=== PATIENT | female | born 2000 | race Two or more races ===

== ENCOUNTER → 2024-08-30 | Outpatient (CLI) | payer SELFPAY ==
[2024-08-30 15:04] LABS: Collection Type, Urine Clean Catch
[2024-08-30 16:07] LABS: Bacteria,Urine 1+; Bilirubin,Urine Negative (Negative); Blood,Urine 2+ (Negative); Color,Urine Yellow (Lt Yel-Yel); Glucose, Urine Negative (Negative); Ketones,Urine Trace (Negative); Leukocyte Esterase,Urine Positive (Negative); Nitrite,Urine Positive (Negative); Protein,Urine 2+ (Neg - Trace); RBC,Urine 38 /hpf (0-3); Squamous Epithelial Cell,Urine 14 /hpf (0-5); Urobilinogen,Urine Negative mg/dL (0.0-1.0); WBC,Urine 1236 /hpf (0-5)
[2024-08-30 16:22] LABS: Clarity,Urine Turbid (Clear/Hazy)
== END | disposition home or self-care (01) ==
LOC: SLDO 14:44
PROVIDERS: PCP Physician Assistant; Referring Provider Physician Assistant; Visit Provider Physician Assistant
DX: N39.0 Urinary tract infection, site not specified (principal)
CPT/HCPCS: 81001; 87077; 87086; 87186

== ENCOUNTER → 2025-02-15 | Outpatient (CLI) | payer BC, SELFPAY ==
[2025-02-15 12:03] LABS: HCG Titer if Positive Positive
[2025-02-15 12:51] LABS: Beta HCG,Quantitative 20643 mIU/mL (<5.0)
== END | disposition home or self-care (01) ==
LOC: COPL 11:03
PROVIDERS: PCP Nurse Practitioner Family; Referring Provider Nurse Practitioner Family; Visit Provider Nurse Practitioner Family
DX: Z32.01 Encounter for pregnancy test, result positive (principal)
CPT/HCPCS: 36415; 84702; 84703

== ENCOUNTER 2025-02-22 10:37 | Emergency (ER) | payer BC, SELFPAY ==
[2025-02-22 10:48] VITALS: BP 133/79; PULSE 94; RESP 18; TEMP 36.8; O2SAT 98; BMI 27.2
--- NOTE | 2025-02-22 11:44 | EDNOTE_ITS ---
<Statement entered by Chula Kim MD - 02/22/25 15:08> As co-signing physician, I was present and available for consult prn. I concur with the plan and care as documented by the midlevel provider. ED OB Contraction Preg RMI/HPI General Chief complaint: Vaginal Bleeding Stated complaint: 7 weeks OB, vaginal bleeding today Time Seen by Provider: 02/22/25 11:43 Source: patient and family Arrival date/time: 02/22/25 10:37 Mode of arrival: ambulatory Limitations: no limitations RME / HPI RME / HPI Narrative: 24-year-old female presents to the ED with a complaint of vaginal bleeding upon wiping after urinating this morning. At about this time patient describes a cramping sensation to the area of the left lateral bladder. This is her third MD Complaint: vaginal bleeding Onset (ago): hour(s) (This a.m.) Consistency: intermittent Location: pelvis Related Data Home Medications ?Medication ?Instructions ?Recorded ?Confirmed ibuprofen 800 mg tablet 800 mg PO Q8H PRN Pain 12/0612/06/20 Previous Rx's ?Medication ?Instructions ?Recorded albuterol sulfate 90 mcg/actuation 2 puff inhalation Q 6H PRN 12/11/20 aerosol inhaler (ProAir HFA) shortness of breath or wh eezing #6.7 grams cefpodoxime 200 mg tablet 200 mg PO BID #6 tabs Allergies Allergy/AdvReac Type Severity Reaction Status Date / Time Penicillins Allergy Intermediate HIVES Verified 02/22/25 10:43 Review of Systems Constitutional Constitutional: Reports system reviewed and no additional complaints, except as documented Eyes Eyes: Reports system reviewed and no additional complaints, except as documented, Denies dry eyes, Denies exophthalmos and Reports floaters Cardiovascular Cardiovascular: Denies chest pain with activity and Denies claudication ED Exam General Limitations: Present no limitations General appearance: Present alert and in no apparent distress Head Head exam: Present atraumatic Eye Eye exam: Present normal appearance and EOMI ENT ENT exam: Present normal exam, normal oropharynx and mucous membranes moist Neck Neck exam: Present normal inspection, full ROM and trachea midline Chest Chest inspection: Present normal inspection and symmetric chest wall rise Respiratory Respiratory exam: Present normal lung sounds bilaterally Cardiovascular Cardiovascular exam: Present regular rate, normal rhythm and normal heart sounds Abdominal Exam Abdominal exam: Present soft and normal bowel sounds Extremities Exam Extremities exam: Present normal inspection and full ROM Back Exam Back exam: Present normal inspection and full ROM Neurological Exam Neurological exam: Present alert and oriented X3 Psychiatric Psychiatric exam: Present normal affect and normal mood Skin Skin exam: Present warm, dry, intact and normal color Course Course Course Narrative: Patient will have a CBC, CMP, hCG, quality, UA, ultrasound, Rh Quality Measures none (NA) Orders Category Date Time Status Administer Rhogam NOW Care 02/22/25 14:05 Active US OB <= 14 weeks fetus Stat Exams 02/22/25 11:54 Completed Beta HCG,Quantitative Stat Lab 02/22/25 11:58 Completed CBC Stat Lab 02/22/25 11:58 Completed CMP [Comprehensive Metabolic Panel] Stat Lab 02/22/25 11:58 Completed Lipase Stat Lab 02/22/25 11:58 Completed Rh Testing Only Stat Lab 02/22/25 12:14 Completed NA Vital Signs Vital signs: Vital Signs Temperature 98.2 F 02/22/25 10:48 Pulse Rate 94 02/22/25 10:48 Respiratory Rate 18 02/22/25 10:48 Blood Pressure 133/79 H 02/22/25 10:48 Pulse Oximetry (%) 98 02/22/25 10:48 Oxygen Delivery Method Room Air 02/22/25 10:48 Pulse ox room air 98% Vaginal Bleeding MDM Narrative MDM Narrative: Patient will be made aware of her ultrasound results which demonstrate a intrauterine at 6 weeks and 2 days. 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 Patient had negative car Rh and she will be given a dose of RhoGAM. Patient data External records reviewed:: Other (specify) (NA) Clinical information provided by:: none (NA) Social determinants that could affect healthcare access:: none (NA) Patient has the following chronic illnesses:: NA How is presenting disease/condition affected by chronic disease/condition?: no chronic disease (No chronic disease) Evaluation data The following diagnostics were reviewed and interpreted by me:: other (specify) (NA) Lab and/or radiology exams considered but not ordered:: NA Interpretation Summary: 6-week and 2 days viable intrauterine Medications / Prescriptions Medications or Prescriptions considered but not ordered:: NA Medication administrations:: RHOGAM Consultations Consultation(s) initiated? (list below): No Diagnosis Vaginal Bleeding Differential Diagnosis: threatened , dysfunctional uterine bleeding, menometrorrhagia, incomplete , ectopic without intrauterine and vaginal bleeding Most likely diagnosis given after review of the tests above:: Rh- patient Admission Indicated Admission indicated?: not indicated Explain why admission is indicated or not indicated:: NA Admission Request Was there a request for admission?: No Disposition Plan Disposition Plan: Discharge Discharge Attestation Discharge Attestation: The patient and all family members were given an opportunity to ask questions and understood the discharge instructions. Discharge instructions specifically effects, indications for sooner follow up or return to the emergency department, and the expected course of current diagnosis. Patient condition: Stable Discharge Plan Plan Patient Disposition: HOME (Self Care) Discharge Disposition comment: Discharge in no apparent distress Patient condition on transfer: Stable Prescriptions/Referrals Prescriptions/Med Rec: No Action ibuprofen 800 mg Tablet 800 mg PO Q8H PRN (Reason: Pain) Rx Instructions: prn stomach and back pain cefpodoxime 200 mg tablet 200 mg PO BID Qty: 6 0RF Rx Instructions: Please administer with a meal/food. Start 12/12. albuterol sulfate [ProAir HFA] 90 mcg/actuation HFA aerosol inhaler 2 puff inhalation Q6H PRN (Reason: shortness of breath or wheezing) Qty: 6.7 0RF Referrals: Chula Cage FNP [Primary Care Provider] - In 1 week Problem List Clinical Impression: Confirmed intrauterine on ultrasound, Threatened Patient/Caregiver Discharge Instructions Print Language: Swedish Stand Alone Forms: Alexa Award Info., Work/School Release, Patient Portal Info Letter FABIO/ALLEGRA Supervising Physician FABIO/ALLEGRA Supervising Physician: RAMON
--- NOTE | 2025-02-22 11:54 | XR_ITS ---
Examination: Complete OB ultrasound, less than 14 weeks, transabdominal Date and time of exam: February 22, 2025 12:18 PM INDICATIONS: Vaginal bleeding beginning 2 days ago Technique: Obstetrical ultrasound images less than 14 weeks performed via transabdominal imaging Findings: A normal shaped single intrauterine gestation is present in the uterus. 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 Amniotic fluid volume appears appropriate for this estimated gestational age. Right ovary 2.2 cm arterial flow Left ovary 3.7 cm arterial flow 21 mm cyst IMPRESSION: Viable intrauterine gestation 6 weeks 2 days.
[2025-02-22 12:26] LABS: Basophils # (Auto) 0.1 Thou/mm3 (0.0-0.2); Basophils % (Auto) 1 % (0-2.5); Eosinophils # (Auto) 0.0 Thou/mm3 (0.0-0.5); Eosinophils % (Auto) 0 % (0-10); Hematocrit 38.1 % (36.0-46.0); Hemoglobin 12.9 g/dL (12.0-16.0); Immature Granulocytes Auto 0.01 Thou/mm3 (0.00-0.00); Lymphocytes # (Auto) 2.3 Thou/mm3 (1.0-4.8); Lymphocytes % (Auto) 32 % (10-50); Mean Corpuscular HGB Conc 33.9 g/dl (31.0-37.0); Mean Corpuscular Hemoglobin 29.7 pg (25.0-35.0); Mean Corpuscular Volume 88 fL (80-100); Monocytes # (Auto) 0.6 Thou/mm3 (0.0-0.8); Monocytes % (Auto) 9 % (0-12); Neutrophils # (Auto) 4.3 Thou/mm3 (1.8-7.7); Neutrophils % (Auto) 59 % (37-80); Nucleated Red Blood Cell # 0.00 Thou/mm3 (0.00-0.00); Nucleated Red Blood Cell % 0 /100 WBC (0); Platelet Count 270 Thou/mm3 (140-440); RDW Standard Deviation 41.8 fL (36.4-46.3); Red Blood Count 4.35 Miln/mm3 (4.00-5.20); White Blood Count 7.3 Thou/mm3 (3.6-11.0)
[2025-02-22 12:50] LABS: Alanine Aminotransferase 26 U/L (10-49); Albumin, Serum 4.6 gm/dL (3.5-5.0); Albumin/Globulin Ratio 1.7 (1.2-2.2); Alkaline Phosphatase 60 U/L (46-116); Anion Gap 9 (7-16); Aspartate Amino Transferase 31 U/L (0-34); BUN/Creatinine Ratio 9 Ratio (12-20); Bilirubin,Total 0.4 mg/dL (0.3-1.2); Blood Urea Nitrogen 7 mg/dL (9-23); Calcium 9.3 mg/dL (8.3-10.6); Calcium (Corrected) 9.3 mg/dL (8.5-10.1); Carbon Dioxide 23.8 mMol/L (20.0-31.0); Chloride 106 mMol/L (98-107); Creatinine (Component) 0.8 mg/dL (0.6-1.3); Estimated Creatinine Clearance 118.3 mL/min (>60); Globulin 2.7 gm/dL (2.3-3.5); Glucose 87 mg/dL (74-106); Lipase 31 U/L (12-53); Osmolality,Calculated 274 (275-295); Potassium 3.9 mMol/L (3.4-5.1); Sodium 139 mMol/L (136-145); Total Protein 7.3 gm/dL (5.7-8.2); eGFR > 60 See Note
[2025-02-22 13:25] LABS: Beta HCG,Quantitative 49890 mIU/mL (<5.0)
[2025-02-22 18:02] VITALS: BP 115/73; PULSE 91; RESP 16; TEMP 36.7; O2SAT 100
[2025-02-22 18:13] VITALS: BP 114/76; PULSE 93; RESP 16; TEMP 36.9; O2SAT 100
== END 2025-02-22 18:44 | disposition home or self-care (01) ==
PROVIDERS: Emergency Provider Physician Assistant; PCP Nurse Practitioner Family
DX: O20.0 Threatened abortion (principal); Z3A.01 Less than 8 weeks gestation of pregnancy
CPT/HCPCS: 36415; 76801; 80053; 83690; 84702; 85025; 86850; 86900; 86901; 99283; J2790

== ENCOUNTER 2025-03-06 13:21 | Outpatient (AMB) | payer BC, SELFPAY ==
--- NOTE | 2025-03-06 13:47 | OBCLNT_ITS ---
Vital Signs 03/06/25 13:48 Height 1.7 m Height Method Measured Weight 88.507 kg Weight Measurement Method Standing Scale BMI 30.6 BP 121/83 Blood Pressure Source Automatic Cuff Blood Pressure Location Right Upper Arm Position Sitting Respiration 17 Pulse 94 Pulse Source Monitor Temp 98.2 F Temp Source Temporal Artery Scan Pulse Oximetry (%) 98 Oxygen Delivery Method Room Air Allergies/Home Meds Allergies & Medications Allergies Penicillins Allergy (Intermediate, Verified 03/06/25 13:48) HIVES Medication Reconciliation vits no.130-ferrous fum 27 mg iron-folic acid 800 mcg tablet ( Vitamin) 1 tab PO QDAY pregancy #60 tabs 03/06/25 [Rx] Intake Visit Data Collection New Patient or Established: Established Patient (seen at [facility] within 3 years) Reason for Visit:: OBI Consent obtained for Telemed Visit: No Seen by Clinical Staff ONLY (RN/MA): No Apparel Manufacture Instructor Required: No Do You Feel Safe at Home: Yes Authorities Contacted: N/A PCP or OBGYN visit in last 3 months: Yes Date of Last PCP or OBGYN visit: 02/22/25 Hx Now: Yes Are you currently on any form of Control: No Last menstrual period: 01/08/25 Pain Present Currently: No Pain Scale Used: Parsons-Gallegos/Numerical Pain scale:: 0 Smoking Status Smoking Status: Never smoker Questionnaires Covid-19 Vaccine Questionnaire Has patient been vacinated for Covid-19 Have you been vacinated for Covid-19: No PHQ-9 PHQ-2 Over the last 2 weeks, how often have you been bothered by any of the following problems? 1. Little interest or pleasure in doing things: not at all 2. Feeling down, depressed, or hopeless: not at all Total score: 0 PHQ-9 3. Trouble falling or staying asleep, or sleeping too much: Not at all 4. Feeling tired or having little energy: Not at all 5. Poor appetite or overeating: Not at all 6. Feeling bad about yourself - or that you are a failure or have let yourself or your family down: Not at all 7. Trouble concentrating on things, such as reading the newspaper or watching television: Not at all 8. Moving or speaking so slowly that other people could have noticed? - Or the opposite - being so fidgety or restless that you have been moving around a lot more than usual: not at all 9. Thoughts that you would be better off or of hurting yourself in some way: Not at all Total score: 0 If you checked off any problems, how difficult have these problems made it for you to do your work, take care of things at home, or get along with other people?: not difficult at all Source: Developed by Drs. Darrick Teixeira, Mary Lou Alarcon, Micky Andrade and colleagues, with an educational hina from [employer]. Social History Living Situation History Lives With: Family Housing: House Tobacco History Smoking Status: Never smoker Alcohol History Alcohol Intake: Never Domestic Abuse History Do You Feel Safe at Home: Yes History of Present Illness HPI Narrative 24-year-old 3 para 0 for OBI. 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 Plan . Last period January 08, 2025. Estimated due date October 15, 2025. Patient had ER visit February 22 for bleeding. Patient measured at that time 6 weeks 2 days and this confirmed dates. She still continues to have subtle spotting pink. Increased nausea. She is not passing cramps and no pain. Denies social habits. Denies surgery. Denies chronic illness. Partner and patient are happy about the COATING INSPECTOR: Past Medical History Past Medical History: No Hx Neurological Disorders, No Hx Cardiac Disorders, No Hx Blood Disorders, No Hx Gastrointestinal Disorders, No Hx Renal Disease, No Hx Diabetes Mellitus Type 1 and No Hx Diabetes Mellitus Type 2 OB Initial Visit OB Flowsheet OB Flowsheet Initial Weight: Not Recorded Date -?-?-?-?-?-?-?-?-?-?-?-?- EGA Weight BP Alb Glu CTX Pres Fundal ht FHR Mov Dilation Station Effacement Hx Notes Visit Note 03/06/25 -?-?-?-?-?-?-?-?-?-?-?-?- 8w 1d 88.507 kg 121/83 absent unknown 8 ab sent 24-year-old 3 24-year-old 3 para 0 . Last period January 08, 2025. This gives due date October 15, 2025. Patient had a ER visit February 22. For bleeding. Patient was given RhoGAM at that time. And ultrasound on 8 6 showed 6 weeks to. And this confirmed dates. Slight nausea and vomiting today. No other OB complaints. Patient denies social habits. Denies surgery. Denies chronic illness. Patient and partner are very happy about the . + fht on sono. hCG was 49,000 OB sono today/threatened sab, discuss sab precaution, OB panel with HCG, A1c, order PNV, comtofrt measure for nausea. rtc 3 week OB sono today/threatened sab , discuss sab precaution, OB panel with HCG, A1c, order PNV, comtfort measure for nausea. rtc 3 week, schedule sono, start PNV Menstrual History Menstrual reliability: definite Flow: normal Menstrual regularity: regular Monthly: Yes Age at menarche: 15 On control pills at conception: No Date of positive home test: 01/31/25 OB History : 3 Para: 0 Hx # Pregnancies: 0 Hx Total # of Abortions (Spontaneous & Elective): 2 # of Living Children: 0 Infection History & Risk Evaluation History of STDs: none HIV risk evaluation: low risk Hepatitis B risk evaluation: low risk Patient or partner has history of Genital Herpes: No Genetic Screening & History Genetic Screening/Teratology Counseling - Includes patient, baby's father, or anyone in either family with: 1. Patient's age 35 years or older as of estimated date of delivery: No 2. Thalassemia (Gambian, Sudanese, Mediterranean, or Background); MCV less than 80: No 3. Neural Tube Defect (Meningomyelocele, Spina Bifida, or Anencephaly): No 4. Congenital Heart Defect: No 5. Down Syndrome: No 6. Rubin-Sachs (Ashkenazi Baptist, Cajun, Ukrainian Ozark): No 7. Vlad Disease (Ashkenazi Baptist): No 8. Familial Dysautonomia (Ashkenazi Baptist): No 9. Sickle Cell Disease or Trait (): No 10. Hemophilia or other blood disorders: No 11. Muscular Dystrophy: No 12. Cystic Fibrosis: No 13. Portis's Chorea: No 14. Mental Retardation/Autism: No 15. Other inherited genetic or chromosomal disorder: No 16. Maternal Metabolic Disorder (EG,TYPE 1 Diabetes, PKU): No 17. Patient or baby's father had a child with defects not listed above: No 18. Recurrent loss or a stillbirth: No 19. Medications (including supplements, vitamins, herbs or otc drugs)/illicit/recreational drugs/alcohol since last menstrual period: No 20. Any other: No Infection History 1. Live with someone with TB or exposed to TB: No 2. Rash or viral illness since last menstrual period: No 3. Hepatitis B,C: No Other (see comments) Source: [employer] Review of Systems Review of Systems Systems Reviewed: All systems reviewed, normal except as documented Exam General Limitations: no limitations General Appearance: alert, in no apparent distress, comfortable, cooperative, healthy appearing, well developed and well groomed Head Head exam: atraumatic, normocephalic and normal inspection ENT ENT exam: Present normal exam, normal oropharynx and mucous membranes moist Neck Neck exam: Present normal inspection, full ROM and trachea midline Chest Chest inspection: Present normal inspection and symmetric chest wall rise Resp Respiratory exam: Present normal lung sounds bilaterally Card Cardiovascular exam: Present regular rate, normal rhythm and normal heart sounds Abdominal Abdominal exam: Present soft and normal bowel sounds Extremities Extremities exam: Present normal inspection and full ROM Psych Psychiatric exam: Present normal affect and normal mood Office Procedures OB Clinic LOC & Office Proc's Nursing/Assessment Patient Status: Established Patient OB Clinic Nursing Assessment: Medication Reconciliation, Update PMH in EMR and V ital Signs OB Clinic Coordination of Care: Complex Care and Chronic Disease 1-5, Education Complex Pt/Fam, Consent,records obtained, informed consent, Education Simp Pt/Fam, 4+ Authorizations needed and Lab and Imaging orders Special Needs: Heart tones Established Patient Charge Established Patient Point Assignment: 165 Established Patient Point Charge: EP Level 5 (160-above) Assessment & Plan Diagnosis / Problem List (1) Encounter for supervision of high risk in first trimester, antepartum: Status: Acute (2) Threatened : Status: Inactive (3) Confirmed intrauterine on ultrasound: Status: Inactive Plan Schedule OB sono for viability. OB panel with hCG and A1c today. Increase rest as needed. No sexual intercourse. No heavy lifting. Increase fluids. Continue vitamins those were ordered today. Discussed ER and SAB precautions. And return in 3 weeks for OB check. MFM appt Additional Plan Follow Up: 4 Weeks (OBC)
[2025-03-06 13:48] VITALS: BP 121/83; PULSE 94; RESP 17; TEMP 36.8; O2SAT 98; BMI 30.6
== END 2025-03-06 14:09 | disposition home or self-care (01) ==
LOC: HODSOBC 13:21
PROVIDERS: PCP Nurse Practitioner Family; Referring Provider Nurse Practitioner Family; Supervising Provider Advanced Practice Midwife; Visit Provider Advanced Practice Midwife
DX: O09.891 Supervision of other high risk pregnancies, first trimester (principal); O20.0 Threatened abortion; Z3A.08 8 weeks gestation of pregnancy; Z88.0 Allergy status to penicillin
CPT/HCPCS: 99215; G0463

== ENCOUNTER 2025-03-29 21:13 | Emergency (ER) | payer BC, SELFPAY ==
[2025-03-29 21:14] VITALS: BMI 29.8
--- NOTE | 2025-03-29 22:37 | EDNOTE_ITS ---
ED Back Injury Pain RME/HPI General Chief Complaint: Back Pain/Injury Stated Complaint: FLANK PAIN/FEVER/PAIN WITH URINATION Time Seen by Provider: 03/29/25 21:43 Arrival date/time: 03/29/25 21:13 RME / HPI RME / HPI Narrative: See [facility] for Dr. Dumas's HPI documentation. Related Data Previous Rx's ?Medication ?Instructions ?Recorded vits no.130-ferrous fum 1 tab PO QDAY preganc y #60 tabs 03/06/25 27 mg iron-folic acid 800 mcg tablet ( Vitamin) cefdinir 300 mg capsule 300 mg PO BID #14 caps 03/30 ondansetron 4 mg disintegrating 4 mg PO TID PRN nausea and 03/30/25 tablet vomiting 30 days #10 tabs oseltamivir 75 mg capsule (Tamiflu) 75 mg PO BID 5 day s #10 caps 03/30/25 oxycodone-acetaminophen 5 mg-325 2 tab PO Q8H PRN pain #12 tabs 03/30/25 mg tablet (Percocet) Allergies Allergy/AdvReac Type Severity Reaction Status Date / Time Penicillins Allergy Intermediate HIVES Verified 03/06/25 13:48 Review of Systems Review of Systems Systems Reviewed: All systems reviewed, normal except as documented Past Medical History Past Medical History NEUROLOGIC: Negative Neurological Disorders CARDIAC: Negative Cardiac Disorders or Congestive Heart Failure RESPIRATORY: Positive Asthma (hx of asthma, last attack 1.5 years ago); Negative Chronic Obstructive Pulmonary Disease (COPD) GASTROINTESTINAL: Negative Gastrointestinal Disorders GENITOURINARY: Negative Genitourinary Disorders or Renal Disease REPRODUCTIVE: Negative Pelvic Inflammatory Disease MUSCULOSKELETAL: Negative Musculoskeletal Disorders ENDOCRINE: Negative Endocrine Disorders, Diabetes Mellitus Type 1 or Diabetes Mellitus Type 2 HEMATOLOGIC: Negative Blood Disorders or Sickle Cell Disease OTHER HISTORY: Negative Autoimmune Disease or Organ Transplant Family History FAMILY HISTORY: Negative Family Cardiac Disorders Surgical History SURGICAL: Negative Joint Replacement, Neurologic Surgery, Brain Shunt, Mastectomy or Organ Transplant Social History SMOKING STATUS: Never smoker ED Exam Narrative Physical exam: See [facility] for Dr. Dumas's physical exam documentation. Course Course Course Narrative: CXR is ordered for determining the etiology of fever. Quality Measures none Orders Category Date Time Status Bedside COVID-19 Antigen Test NOW Care 03/29/25 22:49 Completed Bedside Influenza A&B Antigen Test NOW Care 03/29/25 22:50 Completed Saline [Insert IV] NOW Care 03/29/25 22:50 Completed Straight [In and Out Catheter] X1 Care 03/29/25 22:50 Completed US abdomen Stat Exams 03/29/25 22:44 Completed XR chest 1V portable Stat Exams 03/29/25 22:51 Completed Amylase Stat Lab 03/29/25 23:02 Completed Bilirubin,Direct Stat Lab 03/29/25 23:02 Completed Blood Culture (Lab) Stat Lab 03/29/25 23:02 Results CBC Stat Lab 03/29/25 23:02 Completed CMP [Comprehensive Metabolic Panel] Stat Lab 03/29/25 23:02 Completed CRP [C-Reactive Protein] Stat Lab 03/29/25 23:02 Completed ESR [Sed Rate (ESR)] Stat Lab 03/29/25 23:02 Completed Lactate (Lactic Acid) Stat Lab 03/29/25 23:02 Completed Lipase Stat Lab 03/29/25 23:02 Completed Magnesium Stat Lab 03/29/25 23:02 Completed Procalcitonin Stat Lab 03/29/25 23:02 Completed UA, C/S IF [Urinalysis, C/S if Indicated] Stat Lab 03/29/25 22:50 Completed Acetaminophen Tab [Tylenol ES Tab] Med 03/29/25 22:50 Discontinued 1,000 mg PO X1 ONE KCL 10% Liq UDC 15 ML Med 03/30/25 00:15 Discontinued 40 meq PO X1 ONE Morphine* Inj Med 03/29/25 22:50 Discontinued 4 mg IV X1 ONE Ondansetron Inj [Zofran Inj] Med 03/29/25 22:50 Discontinued 4 mg IVP X1 ONE Ondansetron Odt [Zofran Odt] Med 03/29/25 22:40 Discontinued 4 mg PO X1 ONE Oseltamivir [Tamiflu] Med 03/29/25 23:43 Discontinued 75 mg PO X1 ONE Ringers Lactated 1000 ml [Lactated Ringers] 1,000 ml Med 03/30/25 00:15 Discontinued IV 1,000 mls/hr Sodium Chloride 0.9% 1000 ml [Ns] 1,000 ml Med 03/29/25 22:50 Discontinued IV 999 mls/hr cefTRIAXone/D5w 1gm IV premix [Rocephin/D5w 1gm IV Med 03/29/25 22:50 Discontinued premix] 1 g in 50 ml IV X1 oxyCODONE/APAP 5/325 [Percocet 5/325] Med 03/29/25 22:40 Discontinued 2 tab PO X1 ONE Vital Signs Vital signs: Vital Signs Temperature 100.7 F H 03/29/25 22:41 Pulse Rate 100 03/29/25 22:41 Respiratory Rate 18 03/29/25 22:41 Blood Pressure 117/60 03/29/25 22:41 Pulse Oximetry (%) 98 03/29/25 22:41 Oxygen Delivery Method Room Air 03/29/25 22:41 Back Pain / Injury MDM Narrative MDM Narrative:: This section includes all my notes and documentations, including HPI, PE, and ED course. Wil Dumas MD HPI: 24yo female who is ~11 weeks gestation here with low back pain and subjective fever for the last few days. With dysuria. No abdominal pain or vaginal bleeding. No other complaints reported. ROS: All negative except as documented in HPI. Physical Exam: General: Alert and oriented. No acute distress when remaining still. Fever noted. Eyes: Conjunctivae and lids clear. ENT: No nasal congestion. Pharynx normal. TM normal bilaterally. Neck: Supple. Heart: RRR. Lungs: No respiratory distress. Good air movement. No rhonchi, wheezing, rales. Abdomen: Soft and nontender. Normal bowel sounds. No distension. No rebound or guarding. Back: No CVA tenderness. Skin: Warm and dry. Neuro: Alert and oriented X 3. I reviewed all diagnostic test results. My interpretation of the CXR is NAD. My review of the abdominal US report is NAD. Blood tests remarkable for WBC 13.9, ESR 61, CRP 6.6, and K 3.4. UA remarkable for positive nitrites, positive leukocyte esterase, 22 RBC, 1139 WBC, and 3+ bacteria. Influenza positive. COVID negative. At this point, diagnoses include: UTI Influenza Treatment here included: IV fluid Tylenol Morphine Zofran Oral KCl Tamiflu Rocephin Significant improvement noted. Recommended outpatient management. Based on my best medical judgment, made decision no further evaluation or treatment indicated at this time. Patient understands and agrees to the discharge instructions customized and printed, see below. Discharge Instructions from Dr. Dumas printed for you: 1. After evaluation, you are very sick with influenza and urinary tract infection. 2. No physical exertion for 3 days to help rest the lungs. 3. No smoking or exposure to smoking or pets or dust or humidity. 4. Take cefdinir for UTI and Tamiflu for influenza. 5. For good hydration, increase oral fluid and maintain clear urine. If dark or yellow, increase oral fluid. Zofran for nausea/vomiting. Your body needs extra fluid when you are sick. 6. Percocet for severe pain 7. See a private doctor on 04/03/2025 for recheck. Ask to review all test results and official radiology reports, to make sure you receive all necessary follow-ups and monitoring. Ask for help until you are completely better. 8. Seek immediate medical care with worsening or with any concerns. Wil Dumas MD Patient data External records reviewed:: [facility] previous records (Per chart review, patient has no relevant previous ED visits.) Clinical information provided by:: patient Social determinants that could affect healthcare access:: none Patient has the following chronic illnesses:: asthma How is presenting disease/condition affected by chronic disease/condition?: uneffected by Evaluation data The following diagnostics were reviewed and interpreted by me:: lab results and radiology exam(s) Lab and/or radiology exams considered but not ordered:: none Interpretation Summary: I reviewed all diagnostic test results. My interpretation of the CXR is NAD. My review of the abdominal US report is NAD. Blood tests remarkable for WBC 13.9, ESR 61, CRP 6.6, and K 3.4. UA remarkable for positive nitrites, positive leukocyte esterase, 22 RBC, 1139 WBC, and 3+ bacteria. Influenza positive. COVID negative. Medications / Prescriptions Medications or Prescriptions considered but not ordered:: none Medication administrations:: Medication Administration History Discontinued Medications Acetaminophen (Acetaminophen 500 Mg Tablet) 1,000 mg PO X1 ONE Stop: 03/29/25 22:51 Last Admin: 03/29/25 23:56 Dose: 1,000 mg Documented By: MALLY Sodium Chloride (Ns) 1,000 mls @ 999 mls/hr IV .Q1H1M ONE Stop: 03/29/25 23:50 Last Infusion: 03/30/25 01:16 Dose: Infused Documented By: Admin: 03/30/25 00:01 Dose: 999 mls/hr Documented By: MALLY Ceftriaxone Sodium/Dextrose (Rocephin/D5w 1gm Iv Premix) 1 g in 50 mls @ 100 mls/hr IV X1 ONE Stop: 03/29/25 23:19 Last Infusion: 03/30/25 00:43 Dose: Infused Documented By: Admin: 03/29/25 23:56 Dose: 100 mls/hr Documented By: MALLY Lactated Ringer's (Lactated Ringers) 1,000 mls @ 1,000 mls/hr IV .Q1H ONE Stop: 03/30/25 01:14 Last Admin: 03/30/25 00:40 Dose: 1,000 mls/hr Documented By: MALLY Morphine Sulfate (Morphine Sulf Inj 4 Mg/Ml Vial) 4 mg IV X1 ONE Stop: 03/29/25 22:51 Last Admin: 03/30/25 00:07 Dose: 4 mg Documented By: MALLY Ondansetron HCl (Ondansetron Odt 4 Mg Tabrap) 4 mg PO X1 ONE; Protocol Stop: 03/29/25 22:41 Last Admin: 03/29/25 23:22 Dose: Not Given Documented By: ROSA MARIA Non-Admin Reason: Cancelled by Provider Ondansetron HCl (Ondansetron Inj 2 Mg/Ml Inj 2 Ml) 4 mg IVP X1 ONE; Protocol Stop: 03/29/25 22:51 Last Admin: 03/29/25 23:57 Dose: 4 mg Documented By: MALLY Oseltamivir Phosphate (Oseltamivir 75 Mg Capsule) 75 mg PO X1 ONE Stop: 03/29/25 23:44 Last Admin: 03/30/25 00:07 Dose: 75 mg Documented By: MALLY Oxycodone/Acetaminophen (Oxycodone/Apap 5/325 Tablet) 2 tab PO X1 ONE Stop: 03/29/25 22:41 Last Admin: 03/29/25 23:22 Dose: Not Given Documented By: ROSA MARIA Non-Admin Reason: Cancelled by Provider Potassium Chloride (Potassium Chloride 10% 20 Meq/15 Ml Udc) 40 meq PO X1 ONE Stop: 03/30/25 00:16 Last Admin: 03/30/25 00:38 Dose: 40 meq Documented By: MALLY IV fluid, Tylenol, Morphine, Zofran, Oral KCl, Tamiflu, Rocephin Consultations Consultation(s) initiated? (list below): No Diagnosis Differential diagnosis back pain/injury: lumbar radiculopathy, renal colic and pyelonephritis Most likely diagnosis given after review of the tests above:: UTI, Influenza Admission Indicated Admission indicated?: not indicated Explain why admission is indicated or not indicated:: With significant improvement and no condition needing emergent intervention, there was no indication for admission. Admission Request Was there a request for admission?: No Disposition Plan Disposition Plan: Discharge Discharge Attestation Discharge Attestation: The patient and all family members were given an opportunity to ask questions and understood the discharge instructions. Discharge instructions specifically effects, indications for sooner follow up or return to the emergency department, and the expected course of current diagnosis. Patient condition: Stable Discharge Plan Plan Patient Disposition: HOME (Self Care) Prescriptions/Referrals Prescriptions/Med Rec: New oxycodone-acetaminophen [Percocet] 5-325 mg tablet 2 tab PO Q8H MDD 6 PRN (Reason: pain) Qty: 12 0RF oseltamivir [Tamiflu] 75 mg capsule 75 mg PO BID 5 Days Qty: 10 0RF ondansetron 4 mg tablet,disintegrating 4 mg PO TID PRN (Reason: nausea and vomiting) 30 Days Qty: 10 0RF cefdinir 300 mg capsule 300 mg PO BID Qty: 14 0RF No Action Vitamin 27 mg iron- 800 mcg tablet 1 tab PO QDAY Qty: 60 2RF Referrals: Temporary Provider,ED [Physician, Emergency Medicine] - In 1 week Problem List Clinical Impression: Urinary tract infection, Influenza Patient/Caregiver Discharge Instructions Discharge Activity: activity as tolerated Education Materials: ED Influenza (Adult), ED CYSTITIS Female Adult Additional Instructions: Discharge Instructions from Dr. Dumas printed for you: 1. After evaluation, you are very sick with influenza and urinary tract infection. 2. No physical exertion for 3 days to help rest the lungs. 3. No smoking or exposure to smoking or pets or dust or humidity. 4. Take cefdinir for UTI and Tamiflu for influenza. 5. For good hydration, increase oral fluid and maintain clear urine. If dark or yellow, increase oral fluid. Zofran for nausea/vomiting. Your body needs extra fluid when you are sick. 6. Percocet for severe pain 7. See a private doctor on 04/03/2025 for recheck. Ask to review all test results and official radiology reports, to make sure you receive all necessary follow-ups and monitoring. Ask for help until you are completely better. 8. Seek immediate medical care with worsening or with any concerns. Print Language: Tanzanian Stand Alone Forms: [employer] Award Info., Patient Portal Info Letter
[2025-03-29 22:41] VITALS: BP 117/60; PULSE 100; RESP 18; TEMP 38.2; O2SAT 98
--- NOTE | 2025-03-29 22:44 | XR_ITS ---
Examination: Abdomen sonogram, complete Date and time of exam: March 30, 2025, 0015 hrs. Indications: Right upper abdominal pain beginning 2 weeks ago.. Technique: Multiple real-time grayscale transabdominal sonographic images of the abdomen have been obtained. Findings: Normal gallbladder. Normal common bile duct 0.3 cm. Pancreatic head 2.8 cm. Aorta not enlarged. Liver 15.1 cm no liver lesions. Normal hepatopedal portal venous flow. Patent IVC. Right kidney 10.9 cm cortex 1.4 cm Minimal hydronephrosis Left kidney 10.4 cm cortex 1.3 cm Spleen 10.3 cm Impression:: Minimal right hydronephrosis
--- NOTE | 2025-03-29 22:51 | XR_ITS ---
Examination: PA chest single view Technique: Upright PA chest single view Date and time: March 29, 2025, 2301 hrs. Indications: Fever beginning 2 days ago. Findings: Normal heart size. Lungs are clear. The osseous structures are intact. Impression: No active disease.
[2025-03-29 22:57] LABS: Collection Type, Urine Clean Catch
[2025-03-29 23:06] LABS: Bacteria,Urine 3+; Bilirubin,Urine Negative (Negative); Blood,Urine 3+ (Negative); Budding Yeast,Urine Present; Clarity,Urine Turbid (Clear/Hazy); Color,Urine Yellow (Lt Yel-Yel); Culture Indicated,Urine Contaminated; Glucose, Urine Negative (Negative); Ketones,Urine 1+ (Negative); Leukocyte Esterase,Urine Positive (Negative); Nitrite,Urine Positive (Negative); PH,Urine 6.5 (5.0-7.0); Protein,Urine 1+ (Neg - Trace); RBC,Urine 22 /hpf (0-3); Specific Gravity,Urine 1.015 (1.001-1.035); Squamous Epithelial Cell,Urine 16 /hpf (0-5); Urobilinogen,Urine Negative mg/dL (0.0-1.0); WBC,Urine 1139 /hpf (0-5)
[2025-03-29 23:15] LABS: Lactate (Lactic Acid) 0.9 mMol/L (0.4-2.0)
[2025-03-29 23:19] LABS: Basophils # (Auto) 0.0 Thou/mm3 (0.0-0.2); Basophils % (Auto) 0 % (0-2.5); Eosinophils # (Auto) 0.0 Thou/mm3 (0.0-0.5); Eosinophils % (Auto) 0 % (0-10); Hematocrit 35.7 % (36.0-46.0); Hemoglobin 11.8 g/dL (12.0-16.0); Immature Granulocytes Auto 0.04 Thou/mm3 (0.00-0.00); Lymphocytes # (Auto) 1.5 Thou/mm3 (1.0-4.8); Lymphocytes % (Auto) 11 % (10-50); Mean Corpuscular HGB Conc 33.1 g/dl (31.0-37.0); Mean Corpuscular Hemoglobin 29.1 pg (25.0-35.0); Mean Corpuscular Volume 88 fL (80-100); Monocytes # (Auto) 1.3 Thou/mm3 (0.0-0.8); Monocytes % (Auto) 10 % (0-12); Neutrophils # (Auto) 11.0 Thou/mm3 (1.8-7.7); Neutrophils % (Auto) 79 % (37-80); Nucleated Red Blood Cell # 0.00 Thou/mm3 (0.00-0.00); Nucleated Red Blood Cell % 0 /100 WBC (0); Platelet Count 264 Thou/mm3 (140-440); RDW Standard Deviation 40.7 fL (36.4-46.3); Red Blood Count 4.06 Miln/mm3 (4.00-5.20); White Blood Count 13.9 Thou/mm3 (3.6-11.0)
[2025-03-29 23:26] LABS: Sed Rate (ESR) 61 mm/hr (0-20)
[2025-03-29 23:41] LABS: Alanine Aminotransferase 22 U/L (10-49); Albumin, Serum 4.6 gm/dL (3.5-5.0); Albumin/Globulin Ratio 1.6 (1.2-2.2); Alkaline Phosphatase 69 U/L (46-116); Amylase 37 U/L (30-118); Anion Gap 12 (7-16); Aspartate Amino Transferase 24 U/L (0-34); BUN/Creatinine Ratio 8 Ratio (12-20); Bilirubin,Direct 0.3 mg/dL (0.0-0.3); Bilirubin,Total 0.9 mg/dL (0.3-1.2); Blood Urea Nitrogen 7 mg/dL (9-23); C-Reactive Protein 6.6 mg/dL (0.0-0.9); Calcium 9.7 mg/dL (8.3-10.6); Calcium (Corrected) 9.7 mg/dL (8.5-10.1); Carbon Dioxide 22.9 mMol/L (20.0-31.0); Chloride 102 mMol/L (98-107); Creatinine (Component) 0.9 mg/dL (0.6-1.3); Estimated Creatinine Clearance 106.1 mL/min (>60); Globulin 2.8 gm/dL (2.3-3.5); Glucose 96 mg/dL (74-106); Magnesium 1.8 mg/dL (1.6-2.6); Osmolality,Calculated 271 (275-295); Potassium 3.4 mMol/L (3.4-5.1); Sodium 137 mMol/L (136-145); Total Protein 7.4 gm/dL (5.7-8.2); eGFR > 60 See Note
[2025-03-29 23:45] LABS: Procalcitonin 0.16 ng/ml (0.0-0.49)
[2025-03-29 23:56] VITALS: TEMP 38.2
[2025-03-29] MEDS: ACETAMINOPHEN 500 MG TABLET 1000 MG PO (23:56)
[2025-03-29] MEDS: cefTRIAXone/D5w 1gm IV premix 1 G/50 ML BAG IV (23:56)
[2025-03-29] MEDS: ONDANSETRON INJ 2 MG/ML INJ 2 ML 4 MG IVP (23:57)
[2025-03-30] MEDS: SODIUM CHLORIDE 0.9% 1000 ML 1,000 ML 999 ML IV (00:01)
[2025-03-30] MEDS: OSELTAMIVIR 75 MG CAPSULE PO (00:07)
[2025-03-30] MEDS: MORPHINE SULF INJ 4 MG/ML VIAL IV (00:07)
[2025-03-30 00:32] LABS: Lipase 32 U/L (12-53)
[2025-03-30] MEDS: POTASSIUM CHLORIDE 10% 20 MEQ/15 ML UDC 40 MEQ PO (00:38)
[2025-03-30] MEDS: RINGERS LACTATED 1000 ML 1,000 ML IV (00:40)
[2025-03-30 00:56] VITALS: TEMP 36.8
[2025-03-30 00:57] VITALS: BP 115/80; PULSE 98; RESP 18; TEMP 36.9; O2SAT 95
--- NOTE | 2025-03-30 01:42 | PRELIM_ITS ---
Ultrasound Abdomen. March 30, 2025 at 0015 hours Clinical history: Assess for GB pathology, ureteral stone(s), appendicitis. Technique: Grayscale and color flow images of the abdomen are provided. Hepatic and portal veins were also imaged with color flow images. No prior study is available for comparison. Findings: The liver demonstrates smooth contour and slightly heterogeneous echogenicity. The main portal vein is patent and demonstrates hepatopetal flow. No intrahepatic biliary ductal dilatation. No gallbladder calculus, wall thickening or pericholecystic fluid is demonstrated. The common bile duct is normal in caliber at 3 mm. No free fluid is demonstrated on the submitted images. The pancreas is unremarkable to the extent visualized. The right kidney measures 10.9 x 3.9 x 5.5 cm with cortical thickness of 1.4 cm. The left kidney measures 10.4 x 4.6 x 5.8 cm with cortical thickness of 1.3 cm. There is mild right hydronephrosis. There is no left hydronephrosis. No renal calculi. The spleen is normal measuring 10.3 cm in length. The abdominal aorta and inferior vena cava to the extent visualized are within normal limits. Impression: Mild right hydronephrosis. No renal calculi. Otherwise, unremarkable abdominal sonogram. Report Electronically Signed By: Shayne Reo 03/30/2025 1:41:01 AM [EST]
== END 2025-03-30 02:05 | disposition home or self-care (01) ==
PROVIDERS: Emergency Provider Emergency Medicine; PCP Family Medicine
DX: O98.511 Other viral diseases complicating pregnancy, first trimester (principal); J11.1 Influenza due to unidentified influenza virus with other respiratory manifestations; O23.41 Unspecified infection of urinary tract in pregnancy, first trimester; N39.0 Urinary tract infection, site not specified; Z3A.11 11 weeks gestation of pregnancy
CPT/HCPCS: 36415; 71045; 76700; 80053; 81001; 82150; 82248; 83605; 83690; 83735; 84145; 85025; 85652; 86140; 87040; 87086; 87400; 87811; 96361; 96365; 96375; 99284; J0696; J2270; J2405; J7030; J7120; A9270

== ENCOUNTER 2025-04-03 13:09 | Outpatient (AMB) | payer BC, SELFPAY ==
[2025-04-03 13:36] VITALS: BP 124/73; PULSE 102; RESP 20; TEMP 36.8; O2SAT 97; BMI 29.8
--- NOTE | 2025-04-03 13:36 | OBCLNT_ITS ---
Vital Signs 04/03/25 13:36 Height 1.68 m Height Method Stated Weight 83.971 kg Weight Measurement Method Standing Scale BMI 29.8 BP 124/73 Blood Pressure Source Automatic Cuff Blood Pressure Location Left Upper Arm Position Sitting Respiration 20 Pulse 102 H Pulse Source Monitor Temp 98.3 F Temp Source Oral Pulse Oximetry (%) 97 Oxygen Delivery Method Room Air Allergies/Home Meds Allergies & Medications Allergies Penicillins Allergy (Intermediate, Verified 04/03/25 13:37) HIVES Medication Reconciliation vits no.130-ferrous fum 27 mg iron-folic acid 800 mcg tablet ( Vitamin) 1 tab PO QDAY pregancy #60 tabs 03/06/25 [Rx Confirmed 04/03/25] cefdinir 300 mg capsule 300 mg PO BID #14 caps 03/30/25 [Rx Confirmed 04/03/25] ondansetron 4 mg disintegrating tablet 4 mg PO TID PRN nausea and vomiting 30 days #10 tabs 03/30/25 [Rx Confirmed 04/03/25] oseltamivir 75 mg capsule (Tamiflu) 75 mg PO BID 5 days #10 caps 03/30/25 [Rx Confirmed 04/03/25] oxycodone-acetaminophen 5 mg-325 mg tablet (Percocet) 2 tab PO Q8H PRN pain #12 tabs 03/30/25 [Rx Confirmed 04/03/25] Intake Visit Data Collection New Patient or Established: Established Patient (seen at [facility] within 3 years) Reason for Visit:: CARE/ EMERGENCY ROOM Seen by Clinical Staff ONLY (RN/MA): No Bricklayer Required: No Do You Feel Safe at Home: Yes Authorities Contacted: N/A PCP or OBGYN visit in last 3 months: Yes Hx Now: Yes Are you currently on any form of Control: No Pain Present Currently: No Pain Scale Used: Parsons-Gallegos/Numerical Pain scale:: 0 Smoking Status Smoking Status: Never smoker Questionnaires Covid-19 Vaccine Questionnaire Has patient been vacinated for Covid-19 Have you been vacinated for Covid-19: Yes PHQ-9 PHQ-2 Over the last 2 weeks, how often have you been bothered by any of the following problems? 1. Little interest or pleasure in doing things: not at all 2. Feeling down, depressed, or hopeless: not at all Total score: 0 PHQ-9 3. Trouble falling or staying asleep, or sleeping too much: Not at all 4. Feeling tired or having little energy: Not at all 5. Poor appetite or overeating: Not at all 6. Feeling bad about yourself - or that you are a failure or have let yourself or your family down: Not at all 7. Trouble concentrating on things, such as reading the newspaper or watching television: Not at all 8. Moving or speaking so slowly that other people could have noticed? - Or the opposite - being so fidgety or restless that you have been moving around a lot more than usual: not at all 9. Thoughts that you would be better off or of hurting yourself in some way: Not at all Total score: 0 Source: Developed by Drs. Darrick Teixeira, Mary Lou Alarcon, Micky Andrade and colleagues, with an educational hina from [employer]. Depression screen completed yes Social History Living Situation History Lives With: Family Housing: House Tobacco History Smoking Status: Never smoker Alcohol History Alcohol Intake: Never Domestic Abuse History Do You Feel Safe at Home: Yes GAMB CUTTER: Past Medical History Past Medical History: No Hx Neurological Disorders, No Hx Cardiac Disorders, No Hx Blood Disorders, No Hx Gastrointestinal Disorders, No Hx Renal Disease, No Hx Diabetes Mellitus Type 1 and No Hx Diabetes Mellitus Type 2 Care OB Visit Log OB Flowsheet Initial Weight: Not Recorded Date -?-?-?-?-?-?-?-?-?-?-?-?- EGA Weight BP Alb Glu CTX Pres Fundal ht FHR Mov Dilation Station Effacement Hx Notes Visit Note 03/06/25 -?-?-?-?-?-?-?-?-?-?-?-?- 8w 1d 88.507 kg 121/83 absent unknown 8 ab sent 24-year-old 3 24-year-old 3 para 0 . Last period January 08, 2025. This gives due date October 15, 2025. Patient had a ER visit February 22. For bleeding. Patient was given RhoGAM at that time. And ultrasound on 02 22 showed 6 weeks to. And this confirmed dates. Slight nausea and vomiting today. No other OB complaints. Patient denies social habits. Denies surgery. Denies chronic illness. Patient and partner are very happy about the . + fht on sono. hCG was 49,000 OB sono today/threatened sab, discuss sab precaution, OB panel with HCG, A1c, order PNV, comtofrt measure for nausea. rtc 3 week OB sono today/threatened sab , discuss sab precaution, OB panel with HCG, A1c, order PNV, comtfort measure for nausea. rtc 3 week, schedule sono, start PNV 04/03/25 -?-?--?-?-?-?-?-?-?-?-?-?- 12w 1d 83.971 kg 124/73 absent unknown 8 a bsent Patient complains of increased bleeding the last 3 days. She did not follow-up in the ER. Reports passing clots. On 8 6 patient had an ER visit and at that time there was a 6- week 2-day ultrasound seen and patient's ultrasound showed bicornate uterus. Patient was also given RhoGAM at that time. Patient plans to follow-up and to continue care with Dr Jimenez. Patient complains of increas ed bleeding the last 3 days. She did not follow-up in the ER. Reports passing clots. On 8 6 patient had an ER visit and at that time there was a 6-week 2-day ultrasound seen and patient's ultrasound showed bicornate uterus. Patient was also given RhoGAM at that time. Patient plans to follow-up and to continue care with Dr Jimenez. Patient was treated with antibiotic for UTI Bedside ultrasound was done today and I did not see a fetus measuring 12 weeks. So patient was sent to the ER for further evaluation of first trimester vaginal bleeding. ER precautions were given. RUDY Calculator Estimated Delivery Date Method Current WG Current Estimate 10/15/25 LMP (Certain) 12w 1d Notes Visit Date: 04/03/25 Last Updated by: Connie Powers CNM O-, ABS+(Anti-D), Simeon was not done. HBSAG-,HIV-, HC-, RPR::NR, Rub IMM, GC/CT-/349, < A!c: 5.0, HCG on 94: 19612 Visit Date: 03/06/25 Last Updated by: Connie Powers CNM 24 yo . lmp 01/08/25. EDC 10/15/25, BLOOD TYOE: O-. RHOGAM at 28 week Office Procedures OB Clinic LOC & Office Proc's Nursing/Assessment Patient Status: Established Patient OB Clinic Nursing Assessment: Medication Reconciliation, Update PMH in EMR and Vital Signs OB Clinic Coordination of Care: Complex Care and Chronic Disease 1-5, Consent,records obtained, informed consent, Education Simp Pt/Fam, 1 Ins Authorization, Lab and Imaging orders, Results/Orders obtained and Staff clarify orders Special Needs: Heart tones Established Patient Charge Established Patient Point Assignment: 150 Established Patient Point Charge: EP Level 4 (120-155) Assessment & Plan Diagnosis / Problem List (1) Encounter for supervision of high risk in first trimester, antepartum: Status: Acute (2) Antepartum bleeding, first trimester: Status: Acute Plan Reviewed labs. Continue antibiotics for UTI. Patient is in the process of scheduling a follow-up appointment from the ER with Dr. Jimenez. Patient went to [facility] ER for care. Additional Plan Follow Up: 1 Week (f/u threatened SAB)
== END 2025-04-03 14:36 | disposition home or self-care (01) ==
LOC: HODSOBC 13:09
PROVIDERS: Supervising Provider Advanced Practice Midwife; Visit Provider Advanced Practice Midwife
DX: O09.891 Supervision of other high risk pregnancies, first trimester (principal); O20.9 Hemorrhage in early pregnancy, unspecified; O23.41 Unspecified infection of urinary tract in pregnancy, first trimester; Z3A.12 12 weeks gestation of pregnancy; Z88.0 Allergy status to penicillin
CPT/HCPCS: 99214; G0463

== ENCOUNTER 2025-04-04 22:39 | Emergency (ER) | payer BC, SELFPAY ==
[2025-04-04 22:40] VITALS: BMI 29.8
[2025-04-04 23:01] VITALS: BP 94/62; PULSE 82; RESP 22; TEMP 36.6; O2SAT 99
--- NOTE | 2025-04-04 23:05 | PD.EDRME ---
Rapid Medical Screening Exam RME Arrival date/time: 04/04/25 22:39 24F at approximately 12 weeks and with no significant PMH presents to ED with worsening pelvic pain, bleeding, and N/V. Patient states she was at [facility] ED yesterday where US confirmed there was no heart beat. Patient was told to return in 2 days to compare HCG levels, but patient couldn't wait due to worsening symptoms. Patient did have Rhogam injection during this . Chief Complaint: Abdominal Pain Vital signs: Vital Signs Temperature 97.9 F 04/04/25 23:01 Pulse Rate 82 04/04/25 23:01 Respiratory Rate 22 H 04/04/25 23:01 Blood Pressure 94/62 04/04/25 23:01 Pulse Oximetry (%) 99 04/04/25 23:01 Oxygen Delivery Method Room Air 04/04/25 23:01
[2025-04-04] MEDS: ONDANSETRON INJ 2 MG/ML INJ 2 ML 4 MG IV (23:18)
[2025-04-04] MEDS: MORPHINE SULF INJ 4 MG/ML VIAL IV (23:18)
[2025-04-04] MEDS: SODIUM CHLORIDE 0.9% 1000 ML 1,000 ML 999 ML IV (23:20)
--- NOTE | 2025-04-04 23:23 | EDNOTE_ITS ---
ED Abdominal Pain RME/HPI General Chief Complaint: Abdominal Pain Stated complaint: CRAMPING, MISCARRIAGE Time seen by provider: 04/04/25 23:24 Arrival date/time: 04/04/25 22:39 RME / HPI RME / HPI narrative: 04/04/25 22:39 24F at approximately 12 weeks and with no significant PMH presents to ED with worsening pelvic pain, bleeding, and N/V. Patient states she was at [facility] ED yesterday where US confirmed there was no heart beat. Patient was told to return in 2 days to compare HCG levels, but patient couldn't wait due to worsening symptoms. Patient did have Rhogam injection during this . Dr. Conner?s Main ED Evaluation: 24yo female who is ~12 weeks gestation presents to the ED for complaints of worsening pelvic and back cramping, vaginal bleeding, and nausea. Patient was told yesterday there was no heartbeat and was seen at [facility]. This morning, she developed pelvic and back cramping, vaginal bleeding, and nausea that has since gotten significantly worse. She denies any other associated symptoms. Of note, patient received Rhogam injection at 6 weeks gestation. Related Data Previous Rx's ?Medication ?Instructions ?Recorded vits no.130-ferrous fum 1 tab PO QDAY preganc y #60 tabs 03/06/25 27 mg iron-folic acid 800 mcg tablet ( Vitamin) cefdinir 300 mg capsule 300 mg PO BID #14 caps 03/30 ondansetron 4 mg disintegrating 4 mg PO TID PRN nausea and 03/30/25 tablet vomiting 30 days #10 tabs oxycodone-acetaminophen 5 mg-325 2 tab PO Q8H PRN pain #12 tabs 03/30/25 mg tablet (Percocet) oxycodone-acetaminophen 10 mg-325 1 tab PO Q6H PRN jessica n #10 tabs 04/05/25 mg tablet Allergies Allergy/AdvReac Type Severity Reaction Status Date / Time Penicillins Allergy Intermediate HIVES Verified 04/03/25 13:37 Review of Systems Review of Systems Systems Reviewed: All systems reviewed, normal except as documented Past Medical History Past Medical History NEUROLOGIC: Negative Neurological Disorders CARDIAC: Negative Cardiac Disorders or Congestive Heart Failure RESPIRATORY: Positive Asthma (hx of asthma, last attack 1.5 years ago); Negative Chronic Obstructive Pulmonary Disease (COPD) GASTROINTESTINAL: Negative Gastrointestinal Disorders GENITOURINARY: Negative Genitourinary Disorders or Renal Disease REPRODUCTIVE: Negative Pelvic Inflammatory Disease MUSCULOSKELETAL: Negative Musculoskeletal Disorders ENDOCRINE: Negative Endocrine Disorders, Diabetes Mellitus Type 1 or Diabetes Mellitus Type 2 HEMATOLOGIC: Negative Blood Disorders or Sickle Cell Disease OTHER HISTORY: Negative Autoimmune Disease or Organ Transplant Family History FAMILY HISTORY: Negative Family Cardiac Disorders Surgical History SURGICAL: Negative Joint Replacement, Neurologic Surgery, Brain Shunt, Mastectomy or Organ Transplant Social History SMOKING STATUS: Never smoker ED Exam Narrative Physical exam: Generally patient is alert oriented in moderate distress secondary to pain, heart regular rate and rhythm, lungs clear to auscultation equal bilaterally, abdomen soft bowel sounds present nondistended suprapubic abdominal tenderness without obvious rebound, pelvic exam done with nurse cattle dehorner showed a mild amount of old appearing blood within the vaginal vault without tissue. The os is closed. Course Quality Measures none Orders Category Date Time Status Insert IV NOW Care 04/04/25 23:04 Active US OB <= 14 weeks fetus Stat Exams 04/05/25 00:00 Taken ABO/RH Type Stat Lab 04/04/25 23:26 Completed Beta HCG,Quantitative Stat Lab 04/04/25 23:26 Completed CBC Stat Lab 04/04/25 23:26 Completed CMP [Comprehensive Metabolic Panel] Stat Lab 04/04/25 23:26 Completed HYDROmorphone INJ [Dilaudid Inj] Med 04/04/25 23:33 Discontinued 1 mg IVP X1 ONE Morphine* Inj Med 04/04/25 23:04 Discontinued 4 mg IV X1 ONE Ondansetron Inj [Zofran Inj] Med 04/04/25 23:04 Discontinued 4 mg IV X1 ONE Sodium Chloride 0.9% 1000 ml [Ns] 1,000 ml Med 04/04/25 23:04 Discontinued IV 999 mls/hr oxyCODONE/APAP 5/325 [Percocet 5/325] Med 04/05/25 01:53 Once 2 tab PO X1 ONE Vital Signs Vital signs: Vital Signs Temperature 97.9 F 04/04/25 23:01 Pulse Rate 82 04/04/25 23:01 Respiratory Rate 22 H 04/04/25 23:01 Blood Pressure 94/62 04/04/25 23:01 Pulse Oximetry (%) 99 04/04/25 23:01 Oxygen Delivery Method Room Air 04/04/25 23:01 Abdominal Pain MDM MDM Narrative MDM Narrative:: Scribe Attestation: 04/04/25 - Marianela Alexis am scribing for and in the presence of Dr. Conner. I interpreted all labs. Quantitative beta-hCG is markedly down from where it was in February of this year to where it was above 40,000 and now it is down to 5000. Rh is negative however the patient is already received RhoGAM. Ultrasound shows a rather empty uterus. Patient originally received morphine 4 mg IV for pain with minimal benefit and then received Dilaudid 1 mg IV with marked benefit. Pain was starting to come back so the patient received 10 mg of oxycodone here in the emergency room. She will be discharged on a limited n umber of oxycodone to be taken as prescribed. It looks as if she has completed the miscarriage. Patient data External records reviewed:: [facility] previous records (Per chart review, patient was seen here on 03/29/25 for Influenza.) Clinical information provided by:: patient Social determinants that could affect healthcare access:: none Patient has the following chronic illnesses:: asthma How is presenting disease/condition affected by chronic disease/condition?: uneffected by Evaluation data The following diagnostics were reviewed and interpreted by me:: lab results and radiology exam(s) Lab and/or radiology exams considered but not ordered:: none Interpretation Summary: Telerad Preliminary Report Draft Patient: CHRISTIANA MARCELO. Record#: [id number] Birthdate: 2000 Age/Sex: 24 / F Location: [facility] Attending Dr: Ordering Physician: Date of Service: Procedure(s): Accession Number(s): cc: ~ Pelvic ultrasound (transabdominal and transvaginal). April 05, 2025 0031 hours Clinical history: Assess for viability Technique: Real-time, grayscale, transabdominal and transvaginal pelvic ultrasound was performed using Duplex scanning including arterial inflow, venous outflow, color and spectral Doppler. Comparison: No prior study is available for comparison. Findings: The uterus is normal in size measuring 10.4 x 4.4 x 7.7 cm. 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 The right endometrial stripe 0.5 cm and left endometrial stripe 0.7 cm. The right ovary measures 2.8 x 2.1 cm and is unremarkable. The left ovary measures 2.8 x 2.4 cm. There is a small cyst in the left ovary measuring 1.6 x1.3 x 0.9 cm. Both ovaries demonstrate color flow and spectral waveforms on Doppler evaluation. There is no adnexal mass. There is no free fluid on the submitted images. 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 No intrauterine gestational sac. Recommend clinical correlation. Report Electronically Signed By: Tyler Jovel 04/05/2025 1:47:12 AM Medications / Prescriptions Medications or Prescriptions considered but not ordered:: none Medication administrations:: Medication Administration History Discontinued Medications Hydromorphone HCl (Hydromorphone Inj 2 Mg/Ml Vial) 1 mg IVP X1 ONE Stop: 04/04/25 23:34 Last Admin: 04/04/25 23:39 Dose: 1 mg Documented By: ELADIO Sodium Chloride (Ns) 1,000 mls @ 999 mls/hr IV .Q1H1M ONE Stop: 04/05/25 00:04 Last Infusion: 04/05/25 00:22 Dose: Infused Documented By: Admin: 04/04/25 23:20 Dose: 999 mls/hr Documented By: DT Morphine Sulfate (Morphine Sulf Inj 4 Mg/Ml Vial) 4 mg IV X1 ONE Stop: 04/04/25 23:05 Last Admin: 04/04/25 23:18 Dose: 4 mg Documented By: ELADIO Ondansetron HCl (Ondansetron Inj 2 Mg/Ml Inj 2 Ml) 4 mg IV X1 ONE; Protocol Stop: 04/04/25 23:05 Last Admin: 04/04/25 23:18 Dose: 4 mg Documented By: DT see above Consultations Consultation(s) initiated? (list below): No Diagnosis Differential diagnosis abdominal pain: other (See MDM) Most likely diagnosis given after review of the tests above:: see clinical impression below Admission Indicated Admission indicated?: not indicated Admission Request Was there a request for admission?: No Disposition Plan Disposition Plan: Discharge Discharge Attestation Discharge Attestation: The patient and all family members were given an opportunity to ask questions and understood the discharge instructions. Discharge instructions specifically effects, indications for sooner follow up or return to the emergency department, and the expected course of current diagnosis. Patient condition: Stable Discharge Plan Plan Patient Disposition: HOME (Self Care) Prescriptions/Referrals Prescriptions/Med Rec: New oxycodone-acetaminophen 10-325 mg tablet 1 tab PO Q6H MDD 4 PRN (Reason: pain) Qty: 10 0RF No Action Vitamin 27 mg iron- 800 mcg tablet 1 tab PO QDAY Qty: 60 2RF oxycodone-acetaminophen [Percocet] 5-325 mg tablet 2 tab PO Q8H MDD 6 PRN (Reason: pain) Qty: 12 0RF ondansetron 4 mg tablet,disintegrating 4 mg PO TID PRN (Reason: nausea and vomiting) 30 Days Qty: 10 0RF cefdinir 300 mg capsule 300 mg PO BID Qty: 14 0RF Problem List Clinical Impression: Complete Patient/Caregiver Discharge Instructions Education Materials: ED MISCARRIAGE Completed Additional Instructions: Pain medication as prescribed. You may also use ibuprofen. Follow-up with your [facility] physician as needed. Print Language: Maori Stand Alone Forms: Alexa Award Info., Patient Portal Info Letter
[2025-04-04 23:38] LABS: Basophils # (Auto) 0.1 Thou/mm3 (0.0-0.2); Basophils % (Auto) 1 % (0-2.5); Eosinophils # (Auto) 0.0 Thou/mm3 (0.0-0.5); Eosinophils % (Auto) 0 % (0-10); Hematocrit 35.2 % (36.0-46.0); Hemoglobin 11.8 g/dL (12.0-16.0); Immature Granulocytes Auto 0.05 Thou/mm3 (0.00-0.00); Lymphocytes # (Auto) 1.4 Thou/mm3 (1.0-4.8); Lymphocytes % (Auto) 10 % (10-50); Mean Corpuscular HGB Conc 33.5 g/dl (31.0-37.0); Mean Corpuscular Hemoglobin 28.4 pg (25.0-35.0); Mean Corpuscular Volume 85 fL (80-100); Monocytes # (Auto) 0.6 Thou/mm3 (0.0-0.8); Monocytes % (Auto) 4 % (0-12); Neutrophils # (Auto) 11.1 Thou/mm3 (1.8-7.7); Neutrophils % (Auto) 85 % (37-80); Nucleated Red Blood Cell # 0.00 Thou/mm3 (0.00-0.00); Nucleated Red Blood Cell % 0 /100 WBC (0); Platelet Count 345 Thou/mm3 (140-440); RDW Standard Deviation 39.1 fL (36.4-46.3); Red Blood Count 4.16 Miln/mm3 (4.00-5.20); White Blood Count 13.2 Thou/mm3 (3.6-11.0)
[2025-04-04] MEDS: HYDROmorphone INJ 2 MG/ML VIAL 1 MG IVP (23:39)
--- NOTE | 2025-04-05 | XR_ITS ---
Examination: Complete OB ultrasound, less than 14 weeks, transabdominal Date and time of exam: April 05, 2025 0030 hrs. Indications: Pelvic cramping vaginal bleeding beginning today, early by history Technique: Obstetrical ultrasound images less than 14 weeks performed via transabdominal imaging Findings: Uterus 10.4 cm bicornuate endometrial stripe splenic 5 cm on the right 0.7 cm on the left No uterine mass or intrauterine gestation Right ovary 2.8 cm arterial flow Left ovary 2.8 cm arterial flow 16 mm follicular cyst Impression: No uterine mass or intrauterine gestation
[2025-04-05 00:04] LABS: Alanine Aminotransferase 37 U/L (10-49); Albumin, Serum 4.5 gm/dL (3.5-5.0); Albumin/Globulin Ratio 1.4 (1.2-2.2); Alkaline Phosphatase 73 U/L (46-116); Anion Gap 14 (7-16); Aspartate Amino Transferase 54 U/L (0-34); BUN/Creatinine Ratio 9 Ratio (12-20); Bilirubin,Total 0.4 mg/dL (0.3-1.2); Blood Urea Nitrogen 7 mg/dL (9-23); Calcium 10.0 mg/dL (8.3-10.6); Calcium (Corrected) 10.0 mg/dL (8.5-10.1); Carbon Dioxide 19.6 mMol/L (20.0-31.0); Chloride 107 mMol/L (98-107); Creatinine (Component) 0.8 mg/dL (0.6-1.3); Estimated Creatinine Clearance 119.4 mL/min (>60); Globulin 3.2 gm/dL (2.3-3.5); Glucose 119 mg/dL (74-106); Osmolality,Calculated 280 (275-295); Potassium 3.8 mMol/L (3.4-5.1); Sodium 141 mMol/L (136-145); Total Protein 7.7 gm/dL (5.7-8.2); eGFR > 60 See Note
[2025-04-05 00:22] LABS: Beta HCG,Quantitative 5402 mIU/mL (<5.0)
--- NOTE | 2025-04-05 01:48 | PRELIM_ITS ---
Pelvic ultrasound (transabdominal and transvaginal). April 05, 2025 0031 hours Clinical history: Assess for viability Technique: Real-time, grayscale, transabdominal and transvaginal pelvic ultrasound was performed using Duplex scanning including arterial inflow, venous outflow, color and spectral Doppler. Comparison: No prior study is available for comparison. Findings: The uterus is normal in size measuring 10.4 x 4.4 x 7.7 cm. 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 The right endometrial stripe 0.5 cm and left endometrial stripe 0.7 cm. The right ovary measures 2.8 x 2.1 cm and is unremarkable. The left ovary measures 2.8 x 2.4 cm. There is a small cyst in the left ovary measuring 1.6 x1.3 x 0.9 cm. Both ovaries demonstrate color flow and spectral waveforms on Doppler evaluation. There is no adnexal mass. There is no free fluid on the submitted images. 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 No intrauterine gestational sac. Recommend clinical correlation. Report Electronically Signed By: Tyler Jovel 04/05/2025 1:47:12 AM [EST]
[2025-04-05 02:18] VITALS: BP 110/85; PULSE 70; RESP 14; TEMP 37; O2SAT 99
== END 2025-04-05 02:19 | disposition home or self-care (01) ==
LOC: SERX 04-05 02:13
PROVIDERS: Physician Assistant; Emergency Provider Emergency Medicine; PCP Nurse Practitioner Family
DX: O03.9 Complete or unspecified spontaneous abortion without complication (principal)
CPT/HCPCS: 36415; 76801; 80053; 84702; 85025; 86900; 86901; 96361; 96374; 96375; 99283; J1171; J2270; J2405; J7030; A9270

== ENCOUNTER → 2025-07-10 | Outpatient (CLI) | payer BC, SELFPAY ==
[2025-07-10 14:26] LABS: Collection Type, Urine Clean Catch
[2025-07-10 15:31] LABS: Bacteria,Urine 3+; Bilirubin,Urine Negative (Negative); Blood,Urine Negative (Negative); Clarity,Urine Turbid (Clear/Hazy); Color,Urine Yellow (Lt Yel-Yel); Glucose, Urine Negative (Negative); Ketones,Urine Negative (Negative); Leukocyte Esterase,Urine Positive (Negative); Nitrite,Urine Positive (Negative); PH,Urine 5.5 (5.0-7.0); Protein,Urine Negative (Neg - Trace); RBC,Urine 6 /hpf (0-3); Specific Gravity,Urine 1.016 (1.001-1.035); Squamous Epithelial Cell,Urine 2 /hpf (0-5); Urobilinogen,Urine Negative mg/dL (0.0-1.0); WBC,Urine 150 /hpf (0-5)
[2025-07-10 15:39] LABS: Culture Indicated,Urine Yes
[2025-07-10 19:51] LABS: Chlamydia trachomatis PCR Negative (Not Detect); Neisseria Gonorrhoeae DNA PCR Negative (Not Detect); Trichomonas Negative (Negative)
== END | disposition home or self-care (01) ==
LOC: SLDO 14:21
PROVIDERS: PCP Nurse Practitioner Family; Referring Provider Nurse Practitioner Family; Visit Provider Nurse Practitioner Family
DX: N30.20 Other chronic cystitis without hematuria (principal); Z87.440 Personal history of urinary (tract) infections
CPT/HCPCS: 81001; 87077; 87086; 87186; 87491; 87591; 87661